=== PATIENT | male | born 1990 | race African-American/Black ===

== ENCOUNTER 2019-08-13 17:06 | Emergency (ER) | payer OTHER, SELFPAY ==
--- NOTE | ~2019-08-13 | XR_ITS ---
EXAMINATION: XR abdomen obstructive series EXAM DATE: 08/13/2019 18:31 INDICATION: Vomiting. Generalized abdominal pain. TECHNIQUE: Frontal upright projection of the upper abdomen, frontal projection of the lower abdomen f or interpretation. There is no prior study for comparison. FINDINGS: Small amount of colonic stool and gas. No small bowel dilation, nonobstructive bowel gas pattern. There are no suspicious calcifications identified. There is no organomegaly suspected. The bones are unremarkable. There is no free intraperitoneal air. The lung bases are clear. IMPRESSION: Unremarkable abdomen x-ray exam. Reviewed, dictated and finalized at location A.
[2019-08-13 17:07] VITALS: BP 142/85; PULSE 83; RESP 16; TEMP 36.3; O2SAT 100
[2019-08-13 17:52] LABS: Basophils Absolute Auto 0.1 K/mm3 (0.0-0.1); Basophils Percent Auto 0.5 % (0.2-1.2); Eosinophils Absolute Auto 0.1 K/mm3 (0-0.3); Eosinophils Percent Auto 0.9 % (0-4.4); Hematocrit 40.2 % (42.0-52.0); Hemoglobin 13.5 g/dL (14.0-18.0); Immature Granulocyte Absolute 0.03 K/mm3 (0.00-0.031); Immature Granulocyte Percent A 0.3 % (0-0.5); Lymphocytes Absolute Auto 2.42 K/mm3 (0.9-3.2); Lymphocytes Percent Auto 25.4 % (18.3-44.2); Mean Corpuscular HGB Conc 33.6 g/dl (32-36); Mean Corpuscular Volume 83.4 fl (80-100); Mean Platelet Volume 10.9 fl (7.4-10.4); Monocytes Absolute Auto 0.8 K/mm3 (0.1-0.6); Monocytes Percent Auto 8.6 % (2.6-8.5); Neutrophils Absolute Auto 6.1 K/mm3 (1.3-6.7); Neutrophils Percent Auto 64.3 % (45.5-73.1); Platelet Count Result 231 k/mm3 (150-375); Red Blood Count 4.82 M/mm3 (4.6-6.20); Red Cell Distribution Width 15.6 % (11.5-14.5); White Blood Count 9.5 K/mm3 (4.5-10.0)
[2019-08-13 17:57] LABS: Add Urine Microscopic? YES; Appearance Urine Clear (Clear); Bacteria Urine Trace /hpf; Bilirubin Urine Negative (Negative); Blood Urine Negative (Negative); Color Urine Yellow (Yellow); Glucose Urine UA Negative (Negative); Ketones Urine Negative (Negative); Leukocyte Esterase Ur Negative LEU/UL (Negative); Mucus Urine Rare /lpf; Nitrate Urine Negative (Negative); Protein Urine Negative (Negative); RBC Urine 0-2 /hpf (0-2); Specific Grav Ur 1.021 (1.001-1.035)
[2019-08-13 18:07] LABS: Alanine Aminotransferase 23 U/L (4-50); Albumin Level 3.8 g/dL (3.5-5.1); Alkaline Phosphatase 94 U/L (38-126); Aspartate Amino Transferase 23 U/L (17-59); Bilirubin,Total 0.5 mg/dL (0.2-1.3); Blood Urea Nitrogen 11 mg/dL (9-20); Calcium 8.8 mg/dL (8.4-10.2); Carbon Dioxide 24 mmol/L (22-30); Chloride 107 mmol/L (98-107); Estimated CRCL calculation 143 ml/min; Estimated Glomerular Filt Rate > 60; Glucose 99 mg/dL (75-110); Lipase 37 U/L (23-300); Potassium 3.8 mmol/L (3.4-5.0); Sodium 138 mmol/L (137-145)
[2019-08-13] MEDS: ONDANSETRON INJ 4 MG/2 ML VIAL IV PUSH (18:27)
[2019-08-13] MEDS: SODIUM CHLORIDE 0.9% IV 500 ML 999 ML IV CONT (18:28)
--- NOTE | 2019-08-13 18:51 | ED.NAVMDI ---
HPI - Nausea/Vomiting/Diarrhea General Chief complaint: Nausea/Vomiting/Diarrhea Stated complaint: N/V XTD Time Seen by Provider: 08/13/19 17:52 Source: patient Mode of arrival: ambulatory Limitations: no limitations History of Present Illness HPI Narrative: This is a 29 year old male that presents to the ER for nausea and vomiting since this morning. Reports several episodes of vomiting this morning. Reports some mild upper abdominal pain with this. Reports since he has been able to eat and drink okay with no further episodes of emesis. Denies fever, diarrhea, dysuria or hematuria. Related Data Home Medications Medication Instructions Recorded Confirmed No Home Medications 08/13/19 08/13/19 Allergies Allergy/AdvReac Type Severity Reaction Status Date / Time No Known Allergies Allergy Verified 08/13/19 17:36 Review of Systems Review of Systems: Narrative: CONSTITUTIONAL: Denies fever GASTROINTESTINAL: Reports abdominal pain, nausea, vomiting. Denies diarrhea. GENITOURINARY: Denies dysuria or hematuria. All systems reviewed & are unremarkable except as noted in HPI and below PMFSH Past Medical History Medical History (Updated 08/13/19 @ 19:02 by Alyson Castillo PA-C) No active medical problems Social History Social History (Updated 08/13/19 @ 18:58 by Alyson Castillo PA-C) Smoking status: Never smoker Exam Narrative: Exam Narrative: GENERAL: Well-appearing, well-nourished, and in no acute distress. HEAD: Normocephalic, atraumatic. EYES: EOMI. CHEST: Clear to auscultation. No respiratory distress. No wheezes rales or rhonchi HEART: Regular rate and rhythm. No murmur heard. Normal peripheral pulses. ABDOMEN: Soft, nontender, nondistended, normal active bowel sounds. EXTREMITIES: Normal range of motion. No edema. SKIN: Warm, dry, no rash. NEURO: No focal deficits. Alert and oriented x3. PSYCH: Normal mood and affect Course Vital Signs Vital signs: Vital Signs Temperature 97.4 F L 08/13/19 17:07 Pulse Rate 83 08/13/19 17:07 Respiratory Rate 16 08/13/19 17:07 Blood Pressure 142/85 H 08/13/19 17:07 Pulse Oximetry 100 08/13/19 17:07 Temperature 97.4 F L 08/13/19 17:07 Pulse Rate 83 08/13/19 17:07 Respiratory Rate 16 08/13/19 17:07 Blood Pressure 142/85 H 08/13/19 17:07 Pulse Oximetry 100 08/13/19 17:07 MDM - Nausea/Vomiting/Diarrhea MDM Narrative Medical decision making narrative: Patient presents to the emergency department for nausea and vomiting this morning. Patient is afebrile and nontoxic-appearing. Abdominal exam is benign. CBC is without leukocytosis. Does show mild normocytic anemia with hemoglobin of 13.5. Metabolic panel and lipase are normal. UA with white blood cells, this will go for culture. Patient is asymptomatic. KUB is without acute changes. Patient with no episodes of emesis in the ED. Tolerating p.o. intake. He is to follow-up with primary care doctor. He was given warnings to return to the ER Lab Data Attestation: I reviewed the patient's lab results. Result diagrams: 08/13/19 17:35 08/13/19 17:35 Labs: Lab Results 08/13/19 08/13/19 08/13/19 Range/Units 17:35 17:35 17:37 WBC 9.5 (4.5-10.0) K/mm3 RBC 4.82 (4.6-6.20) M/mm3 Hgb 13.5 L (14.0-18.0) g/dL Hct 40.2 L (42.0-52.0) % MCV 83.4 (80-100) fl MCH 28.0 (26-34) pg MCHC 33.6 (32-36) g/dl RDW 15.6 H (11.5-14.5) % Plt Count 231 (150-375) k/mm3 MPV 10.9 H (7.4-10.4) fl Immature Gran % (Auto) 0.3 (0-0.5) % Neut % (Auto) 64.3 (45.5-73.1) % Lymph % (Auto) 25.4 (18.3-44.2) % [place] % (Auto) 8.6 H (2.6-8.5) % Eos % (Auto) 0.9 (0-4.4) % Baso % (Auto) 0.5 (0.2-1.2) % Lymph # (Auto) 2.42 (0.9-3.2) K/mm3 [place] # (Auto) 0.8 H (0.1-0.6) K/mm3 Eos # (Auto) 0.1 (0-0.3) K/mm3 Baso # (Auto) 0.1 (0.0-0.1) K/mm3 Abs Immat Gran (auto) 0.03 (0.00-0.031) K/mm3 Abs
== END 2019-08-13 19:45 | disposition home or self-care (01) ==
PROVIDERS: Emergency Provider Emergency Medicine; PCP Emergency Medicine
DX: R11.2 Nausea with vomiting, unspecified (principal)
CPT/HCPCS: 36415; 74019; 80053; 81001; 83690; 85025; 87086; 96365; 96375; 99284; J0131; J2405; J7040

== ENCOUNTER → 2019-10-19 15:55 | Outpatient (CLI) | payer OTHER, SELFPAY ==
--- NOTE | ~2019-10-19 | XR_ITS ---
XR cervical spine 4-5V DATE: 10/19/2019 16:30 INDICATION: Left hand numbness TECHNIQUE: AP, lateral, swimmer and open mouth views COMPARISON: None FINDINGS: There is mild reversal of cervical curvature. C1 and C2 are normally aligned and the odont oid process is intact. No fracture, dislocation or locked facet or prevertebral soft tissue swellin g. The cervical interspaces are well preserved. IMPRESSION: Mild reversal of curvature Reviewed, dictated and finalized at location A. IMPRESSION: Mild reversal of curvature
== END ==
PROVIDERS: PCP Emergency Medicine; Visit Provider Emergency Medicine
DX: R20.0 Anesthesia of skin (principal)
CPT/HCPCS: 72050

== ENCOUNTER 2020-10-05 16:23 | Emergency (ER) | payer OTHER, SELFPAY ==
--- NOTE | ~2020-10-05 | XR_ITS ---
EXAMINATION: XR ankle LT min 3V EXAM DATE: 10/05/2020 16:50 INDICATION: Heel pain, states spur shaved of January 2020.. TECHNIQUE: Left foot dorsoplantar, lateral and oblique projections obtained and reviewed. Comparison is made to prior examination from 12/30/2018. FINDINGS: Left calcaneal surgical changes, previously seen posterior calcaneal spurring/Achilles enth esopathy no longer identified. There is a metallic anchor in the calcaneus probably from Achilles ten don reattachment. No other radiopaque foreign bodies. No erosive changes or acute fracture. The ankle mortise appears intact. Talar dome without osteochondral defect. IMPRESSION: Calcaneal surgical changes. Reviewed, dictated and finalized at location A. IMPRESSION: Calcaneal surgical changes.
[2020-10-05 16:31] VITALS: BP 130/66; PULSE 64; RESP 18; TEMP 36.8; O2SAT 99
[2020-10-05] MEDS: ACETAMINOPHEN 500 MG TABLET 1000 MG PO (16:59)
--- NOTE | 2020-10-05 17:05 | ED.LOWEXIN ---
HPI - Extremity Injury (Lower) General Chief Complaint: Extremity Injury, Lower Stated Complaint: L ankle injury Time Seen by Provider: 10/05/20 16:31 History of Present Illness HPI Narrative: Patient is a 30-year-old male who presents ER with left ankle pain is actually posterior to the left ankle anterior to the Achilles. He reports mild swelling in this area. Pain increased over the last couple days. Has history of surgery to the area. No recent injury. No fevers or chills or sweats. No redness area. No history of gout. Patient is concerned there could be something wrong with the bone despite not having injury. Related Data Allergies Allergy/AdvReac Type Severity Reaction Status Date / Time No Known Allergies Allergy Verified 10/05/20 16:39 Review of Systems Constitutional: Constitutional: Denies chills and Denies fever(s) Musculoskeletal: Musculoskeletal: Reports arthralgias and Reports joint swelling Neurologic: Denies focal weakness and Denies numbness PMFSH Past Medical History Medical History (Updated 10/05/20 @ 17:09 by Ministerio Stafford MD) No active medical problems Surgical History Surgical History (Updated 10/05/20 @ 17:07 by Ministerio Stafford MD) H/O foot surgery Social History Social History (Updated 08/13/19 @ 18:58 by Alyson Castillo PA-C) Smoking status: Never smoker Exam Narrative: Exam Narrative: GENERAL: Well-appearing, well-nourished, and in no acute distress. HEAD: Normocephalic, atraumatic. CHEST: Clear to auscultation. No respiratory distress. HEART: Regular rate and rhythm. Normal peripheral pulses. EXTREMITIES: Normal range of motion. No edema. No tenderness to left ankle. SKIN: Warm, dry, no rash. NEURO: Alert and oriented x3. PSYCH: Normal mood and affect. Course Course Emergency Course: Unremarkable imaging. Recommend rest/ice/elevation/Jamar wrap. Could have arthritic component is causing discomfort. No evidence of gout. Vital Signs Vital signs: Vital Signs Temperature 98.3 F 10/05/20 16:31 Pulse Rate 64 10/05/20 16:31 Respiratory Rate 18 10/05/20 16:31 Blood Pressure 130/66 10/05/20 16:31 Pulse Oximetry 99 10/05/20 16:31 Temperature 98.3 F 10/05/20 16:31 Pulse Rate 64 10/05/20 16:31 Respiratory Rate 18 10/05/20 16:31 Blood Pressure 130/66 10/05/20 16:31 Pulse Oximetry 99 10/05/20 16:31 MDM - Extremity Injury (Lower) Imaging Data Radiologist's impression: ITS Impressions Ankle X-Ray 10/05/20 16:55 IMPRESSION: Calcaneal surgical changes. Discharge Plan Discharge Clinical Impression: Acute ankle pain Patient Disposition: Home, Self-Care Condition: Stable Instructions: Arthralgia (ED), R.I.C.E. Treatment (ED) Additional Instructions: Follow-up with your primary care doctor or with your geosciences professor. Continue to wrap your foot, elevate it, and apply ice as needed. Take naproxen twice a day to help with inflammation. Prescriptions: New naproxen 500 mg tablet 500 mg PO BID Qty: 14 RF: 0 Follow-up/Referrals: Demetrius Ortiz MD [Primary Care Provider] - 1 Week
--- NOTE | 2020-10-05 17:26 | PC.NURSE ---
Tried to apply solo wrap. Pt declined at this time. Requested to take the solo wrap home and apply when he got there. Pt provided education on how to apply.
== END 2020-10-05 17:28 | disposition home or self-care (01) ==
PROVIDERS: Emergency Provider Emergency Medicine; PCP Emergency Medicine
DX: M25.572 Pain in left ankle and joints of left foot (principal)
CPT/HCPCS: 73610; 99283; A9270

== ENCOUNTER 2020-11-11 21:52 | Emergency (ER) | payer OTHER, SELFPAY ==
[2020-11-11] VITALS (16 sets, daily range): BP systolic 121–146; BP diastolic 81–95; PULSE 83–98; RESP 0–24; TEMP 36.9; O2SAT 92–100
--- NOTE | ~2020-11-11 | XR_ITS ---
EXAMINATION: XR chest 1V portable DATE: 11/11/2020 22:30 INDICATION: Shortness of breath. TECHNIQUE: A single frontal view of the chest was obtained. COMPARISON: Chest 2 views 12/25/2015 FINDINGS: Sensitivity is decreased by obesity. The chest demonstrates clear lungs without pneumonia, pleural effusion, or pneumothorax. The heart size is normal. IMPRESSION: 1. No acute cardiopulmonary disease. Reviewed, dictated and finalized at location A.
--- NOTE | 2020-11-11 22:13 | PC.NURSE ---
pt reports exposure to covid 11/04. reports his shortness of breath and headache started 3 days ago. no covid vaccine history. denies other complaints. intermittent congested cough noted without productive sputum. a/o x 4. resps even, nonlabored. able to speak in full sentences.
--- NOTE | 2020-11-11 22:21 | ECG_ITS ---
Measurements Intervals [place] Rate: 89 P: 19 OK: 186 QRS: -17 QRSD: 89 T: 29 QT: 338 QTc: 412 Interpretive Statements SINUS RHYTHM VOLTAGE CRITERIA FOR LVH POOR R WAVE PROGRESSION, ANTERIOR LEADS MINIMAL Q WAVES- HIGH LATERAL LEADS BORDERLINE ECG Electronically Signed On 11-12-2020 7:54:36 CDT by Jaime Peres D.O.
[2020-11-11 23:00] LABS: Basophils Percent Auto 0.3 % (0.2-1.2); Hematocrit 46.5 % (42.0-52.0); Hemoglobin 15.4 g/dL (14.0-18.0); Immature Granulocyte Absolute 0.02 K/mm3 (0.00-0.031); Immature Granulocyte Percent A 0.3 % (0-0.5); Lymphocytes Absolute Auto 2.08 K/mm3 (0.9-3.2); Lymphocytes Percent Auto 34.8 % (18.3-44.2); Mean Corpuscular HGB Conc 33.1 g/dl (32-36); Mean Corpuscular Hemoglobin 27.5 pg (26-34); Mean Corpuscular Volume 82.9 fl (80-100); Mean Platelet Volume 11.4 fl (7.4-10.4); Monocytes Absolute Auto 0.7 K/mm3 (0.1-0.6); Neutrophils Absolute Auto 3.2 K/mm3 (1.3-6.7); Neutrophils Percent Auto 53.6 % (45.5-73.1); Platelet Count Result 180 k/mm3 (150-375); Red Blood Count 5.61 M/mm3 (4.6-6.20); Red Cell Distribution Width 14.5 % (11.5-14.5)
--- NOTE | 2020-11-11 23:08 | ED.URI ---
HPI - URI/Sore Throat General Chief Complaint: Upper Respiratory Infection Stated Complaint: sob Time Seen by Provider: 11/11/20 22:00 Source: patient and RN notes reviewed Mode of arrival: ambulatory Limitations: no limitations History of Present Illness HPI Narrative: This is a 30 year old male who presents for evaluation shortness of breath and covid exposure. Patient states he was exposed to covid on Saturday. He developed cough, runny nse, headache on Saturday. He went to [facility] on Saturday for covid test but he did not follow up on the results. He states he continues to not feel well. He developed shortness of breath tonight so he came to ER. He noticed when he was walking outside. He states he feels better that he is here. He denies chest pain, fever, leg swelling or calf pain. He also denies vomiting. He denies cardiac history or lung history. He also history of DT or PE. Related Data Allergies Allergy/AdvReac Type Severity Reaction Status Date / Time No Known Allergies Allergy Verified 11/11/20 22:05 Review of Systems Review of Systems: All systems reviewed & are unremarkable except as noted in HPI and below PMFSH Past Medical History Medical History No active medical problems Surgical History Surgical History H/O foot surgery Social History Social History Smoking status: Never smoker Exam Const: General: no acute distress and alert Nutritional Appearance: obese Orientation/consciousness: patient oriented x3 Eyes: EOM: EOMs intact bilaterally Chest: Chest palpation & inspection: normal inspection of the chest Resp: Effort & Inspection: normal respiratory effort and no retractions Auscultation: clear to auscultation bilaterally Cardio: Rate: regular rate Rhythm: regular rhythm Heart sounds: no murmurs GI: GI Palp: Yes Soft to palpation, No Tenderness to palpation present (GI) and No Guarding due to palpation present (GI) Auscultation: normal bowel sounds Skin: General skin exam: normal color Rashes: no rashes Neuro: General: patient oriented x3, moves all extremities and CN's II-XI intact bilaterally Psych: Mental Status: mental status grossly normal Affect: normal affect Course Reevaluation(s) Reevaluation #1: I discussed with patient labs and xray are unremarkable. He will be instructed on using albuterol I have discussed discharge plan. Date: 11/11/20 Time: 23:43 Vital Signs Vital signs: Vital Signs Temperature 98.4 F 11/11/20 21:59 Pulse Rate 92 11/11/20 21:59 Respiratory Rate 16 11/11/20 21:59 Blood Pressure 132/95 H 11/11/20 21:59 Pulse Oximetry 97 11/11/20 21:59 Temperature 98.4 F 11/11/20 21:59 Pulse Rate 88 11/11/20 23:17 Respiratory Rate 24 H 11/11/20 23:17 Blood Pressure 146/93 H 11/11/20 23:01 Pulse Oximetry 100 11/11/20 23:17 MDM - URI/Sore Throat Lab Data Attestation: I reviewed the patient's lab results. Result diagrams: 11/11/20 22:37 11/11/20 22:37 Labs: Lab Results 11/11/20 11/11/20 11/11/20 Range/Units 22:37 22:37 22:37 WBC 6.0 (4.5-10.0) K/mm3 RBC 5.61 (4.6-6.20) M/mm3 Hgb 15.4 (14.0-18.0) g/dL Hct 46.5 (42.0-52.0) % MCV 82.9 (80-100) fl MCH 27.5 (26-34) pg MCHC 33.1 (32-36) g/dl RDW 14.5 (11.5-14.5) % Plt Count 180 (150-375) k/mm3 MPV 11.4 H (7.4-10.4) fl Immature Gran % (Auto) 0.3 (0-0.5) % Neut % (Auto) 53.6 (45.5-73.1) % Lymph % (Auto) 34.8 (18.3-44.2) % [place] % (Auto) 11.0 H (2.6-8.5) % Eos % (Auto) 0.0 (0-4.4) % Baso % (Auto) 0.3 (0.2-1.2) % Lymph # (Auto) 2.08 (0.9-3.2) K/mm3 [place] # (Auto) 0.7 H (0.1-0.6) K/mm3 Eos # (Auto) 0.0 (0-0.3) K/mm3 Baso # (Auto) 0.0 (0.0-0.1) K/mm3 Abs Immat Gran
[2020-11-11 23:11] LABS: INR 0.9; Prothrombin Time 12.1 Seconds (11.1-14.7)
[2020-11-11 23:14] LABS: D Dimer 0.31 ug/mL (<0.48)
[2020-11-11 23:16] LABS: Alanine Aminotransferase 27 U/L (4-50); Albumin Level 4.2 g/dL (3.5-5.1); Alkaline Phosphatase 115 U/L (38-126); Anion Gap 8 mmol/L (8-16); Aspartate Amino Transferase 24 U/L (17-59); Bilirubin,Total 0.5 mg/dL (0.2-1.3); Blood Urea Nitrogen 7 mg/dL (9-20); CRP 1.7 mg/dL (<1.0); Carbon Dioxide 23 mmol/L (22-30); Chloride 107 mmol/L (98-107); Estimated CRCL calculation 149 ml/min; Estimated Glomerular Filt Rate > 60; Glucose 100 mg/dL (65-110); Sodium 138 mmol/L (137-145)
[2020-11-12 00:06] VITALS: PULSE 83
[2020-11-12 00:20] VITALS: PULSE 73; RESP 23; O2SAT 99
[2020-11-12 00:30] VITALS: PULSE 81; RESP 24; O2SAT 99
[2020-11-12 00:31] VITALS: BP 122/74; PULSE 85; O2SAT 95
[2020-11-12] MEDS: ALBUTEROL SULFATE (*SP) AEROSOL 1 PUFF 2 PUFF INHALATION (00:31)
[2020-11-12 21:29] LABS: SARS-CoV-2 RNA PCR Positive
== END 2020-11-12 00:50 | disposition home or self-care (01) ==
PROVIDERS: Emergency Provider General Practice
DX: U07.1 COVID-19 (principal); J06.9 Acute upper respiratory infection, unspecified; R94.31 Abnormal electrocardiogram [ECG] [EKG]
CPT/HCPCS: 36415; 71045; 80053; 85025; 85380; 85610; 85730; 86140; 87804; 93005; 99283; A9270; C9803; U0003; U0005

== ENCOUNTER 2021-05-17 02:00 | Emergency (ER) | payer OTHER, SELFPAY ==
[2021-05-17 02:19] VITALS: BP 136/62; PULSE 75; RESP 18; TEMP 36.7; O2SAT 100
--- NOTE | 2021-05-17 02:48 | ED.SKABFB ---
HPI - Skin/Abscess/Foreign Bdy General Chief complaint: Skin/Abscess/Foreign Body Stated complaint: lump to left eyebrow x2 days Time Seen by Provider: 05/17/21 02:31 Source: patient History of Present Illness HPI narrative: Patient presents with a lump above his left eyebrow. Reports been there for the past 2 days and has been getting worse he feels a lot of pressure in that area so he wanted to come to the ER for evaluation. Denies any trauma to the area denies any nausea vomiting denies any fevers. Denies any changes in vision denies any pain with extraocular movement Related Data Allergies Allergy/AdvReac Type Severity Reaction Status Date / Time No Known Allergies Allergy Verified 05/17/21 02:33 Review of Systems Review of Systems: CONSTITUTIONAL: Denies fever, chills, or sweats. EYES: Denies visual changes, redness, or discharge. ENT: Denies rhinorrhea, congestion, sore throat, or otalgia. CARDIOVASCULAR: Denies chest pain, palpitations, or edema. RESPIRATORY: Denies cough or dyspnea. GASTROINTESTINAL: Denies abdominal pain, nausea, vomiting, or diarrhea. GENITOURINARY: Denies dysuria or hematuria. SKIN: Denies rash or itching. MUSCULOSKELETAL: Denies back pain, joint pain, or myalgia. NEUROLOGIC: Denies headache, numbness, dizziness, or weakness. PSYCHIATRIC: Denies anxiety or depression. All systems reviewed & are unremarkable except as noted in HPI and below PMFSH Past Medical History Medical History No active medical problems Surgical History Surgical History H/O foot surgery Social History Social History Smoking status: Never smoker Exam Narrative: GENERAL: Well-appearing, well-nourished, and in no acute distress. HEAD: For mobile nodule above the left medial eyebrow with tenderness to palpation surrounded by edema, no open or draining wounds EYES: PERRLA and EOMI. ENT: Nares clear, no rhinorrhea or epistaxis. Mucous membranes moist. NECK: Supple. No masses. No JVD EXTREMITIES: Normal range of motion. No edema. SKIN: Warm, dry, no rash. NEURO: No focal deficits. Alert and oriented x3. PSYCH: Normal mood and affect. Course Vital Signs Vital signs: Vital Signs Temperature 36.7 C 05/17/21 02:19 Pulse Rate 75 05/17/21 02:19 Respiratory Rate 18 05/17/21 02:19 Blood Pressure 136/62 05/17/21 02:19 Pulse Oximetry 100 05/17/21 02:19 Temperature 36.7 C 05/17/21 02:19 Pulse Rate 75 05/17/21 02:19 Respiratory Rate 18 05/17/21 02:19 Blood Pressure 136/62 05/17/21 02:19 Pulse Oximetry 100 05/17/21 02:19 Procedures Abscess I/D scalp: Date of Incision: 05/17/21 Time of Incision: 02:45 Side (if applicable): left Local Anesthetic: lidocaine 1% and with epi Technique: needle aspiration and incised with #11 blade Amount of fluid expressed (mL): 1 Irrigation: No Packing used?: none I&D Results: Pus and Blood MDM - Skin/Abscess/Foreign Bdy MDM Narrative Medical decision making narrative: H&P as above, vss, pt looks clinically well, exam tender nodule surrounded by edema and warmth, bedside ultrasound performed showing a focal fluid collection, additional labs/img considered, symptomatic relief available as needed, needle aspiration attempted however only blood was expressed, recommended I&D patient tolerated the procedure well, dns osteomyelitis, retrobulbar process, severe sepsis. plan to tx/monitor as op w/ pcm f/u findings/plan discussed with pt, pt agree/comfortable with plan, return precautions given Discharge Plan Discharge Clinical Impression: Cellulitis Qualifiers: Site of cellulitis: face Qualified Code(s): L03.211 - Cellulitis of face Abscess of skin or subcutaneous tissue Qualifiers: Site of cutaneous abscess: face Qualified Code(s):
[2021-05-17] MEDS: CEPHALEXIN 500 MG CAPSULE PO (02:54)
== END 2021-05-17 03:58 | disposition home or self-care (01) ==
LOC: ANHED 02:54
PROVIDERS: Emergency Provider Emergency Medicine; PCP Emergency Medicine
DX: L03.211 Cellulitis of face (principal); L02.01 Cutaneous abscess of face
CPT/HCPCS: 10060; 99283; A9270

== ENCOUNTER 2021-08-16 15:50 | Emergency (ER) | payer OTHER, SELFPAY ==
--- NOTE | 2021-08-16 15:51 | ED.ABDPAIN ---
HPI - Abdominal Pain General Chief Complaint: Nausea/Vomiting/Diarrhea Stated Complaint: abd pain Time Seen by Provider: 08/16/21 15:51 Source: patient Mode of arrival: ambulatory Limitations: no limitations History of Present Illness HPI narrative: Mr. Solis is a 31-year-old male patient presenting to the clinic today with complaints nausea, vomiting, and diarrhea that started last night. He reports he thinks it may have been something he ate. His daughter is also having some diarrhea. States that he had 1 episode of vomiting last night and then 1 episode this morning. Did have 1 episode of diarrhea this morning but nothing since MD elicited complaint: abdominal pain Related Data Allergies Allergy/AdvReac Type Severity Reaction Status Date / Time No Known Allergies Allergy Verified 05/17/21 02:33 Review of Systems Review of Systems: Pertinent positives per HPI. Patient denies any fever, chills, rash, headache, visual changes, dizziness, cough, runny nose, sore throat, shortness of breath, chest pain, palpitations, nausea, vomiting, diarrhea, constipation, or any urinary issues. PMFSH Past Medical History Medical History No active medical problems Surgical History Surgical History H/O foot surgery Social History Social History Smoking status: Never smoker Comments At the time of my signature, I reviewed and agree with the nursing past medical, surgical, social, and family history. There is no relevant family history pertinent to the patient complaint. Exam Narrative: General: Well-developed, morbidly obese, in no apparent distress. Head: Normocephalic, atraumatic. Cardio: Regular rate and rhythm, s1 and s2 normal, no murmur appreciated. Resp: Clear to auscultation bilaterally, no rhonchi, rales, wheezing or rubs. Abdomen: Soft, pliable, bowel sounds present in all quadrants, non-tender to palpation, no organomegly, no CVAT tenderness. Course Course Emergency Course: Portions of this record may have been created with voice recognition software. Level of Care: Express Care Visit Vital Signs Vital signs: Vital signs reviewed MDM - Abdominal Pain MDM Narrative Medical decision making narrative: At the time of visit patient is resting comfortably on the exam table. Reports 2 episodes of vomiting and one episode of diarrhea since last night. He denies any fever or chills. He denies any abdominal discomfort. I suspect the patient may have gastroenteritis. I will give a prescription for some Zofran and discussed other supportive measures and he voiced understanding of discharge instructions and agrees with treatment plan. Discharge Plan Discharge Clinical Impression: Gastroenteritis Patient Disposition: Home, Self-Care Condition: Stable Instructions: Antibiotic Form, Gastroenteritis (ED), Acute Nausea and Vomiting (ED) Additional Instructions: Take prescription medications only as prescribed-Zofran for nausea Take Imodium as needed for diarrhea as long as there is no blood in your stool Increase fluids and stay well hydrated Tylenol/motrin for pain/fever BRAT diet for diarrhea Clear liquids x 24 hours then advance as tolerated for nausea/vomiting May return to the clinic if symptoms worsen Go to the ED if you develop dehydration, weakness, lethargy, shortness of breath, or chest pain. Follow up with your PCP in 3-5 days if symptoms persist. Prescriptions: New ondansetron 4 mg tablet,disintegrating 4 mg PO Q6H PRN (Reason: nausea and vomiting) 3 Days Qty: 12 RF: 0 Follow-up/Referrals: UNKNOWN,DOCTOR [Primary Care Provider] - Stand Alone Forms: Work/School Release IP Time of Disposition: 16:02 Quality NIHSS Nursing Documentation ED NIHSS nursing documentation: reviewed/ag
[2021-08-16 15:59] VITALS: BP 136/83; PULSE 79; RESP 16; TEMP 36.6; O2SAT 99
[2021-08-16 16:02] VITALS: BP 136/83; PULSE 79; RESP 16; TEMP 36.6; O2SAT 99
== END 2021-08-16 16:05 | disposition home or self-care (01) ==
PROVIDERS: Emergency Provider Nurse Practitioner Family
DX: K52.9 Noninfective gastroenteritis and colitis, unspecified (principal)
CPT/HCPCS: 99213; G0463

== ENCOUNTER 2022-02-18 04:28 | Emergency (ER) | payer OTHER, SELFPAY ==
[2022-02-18 04:35] VITALS: BP 129/61; PULSE 53; RESP 18; TEMP 37.3; O2SAT 100
--- NOTE | 2022-02-18 05:19 | ED.EXTPRO ---
HPI - Extremity Problem General Chief complaint: Extremity Problem,Nontraumatic Stated complaint: numbness in right arm, bilateral hand Time Seen by Provider: 02/18/22 04:35 History of Present Illness HPI Narrative: 31-year-old male presented the emergency department for evaluation of bilateral numbness to his hands. Patient states this has been occurring over the last few mornings when he wakes up and tonight patient states he went to bed early and when he woke up the hand numbness was worse on the right than the left. Patient does report he does work and does repetitive motions of the wrist. Patient denies any prior history of CVA or ID. Patient denies any other falls or injuries. Patient denies any weakness of the hands and patient denies any numbness weakness of the lower extremities. Related Data Allergies Allergy/AdvReac Type Severity Reaction Status Date / Time No Known Allergies Allergy Verified 02/18/22 04:30 Review of Systems Review of Systems: CONSTITUTIONAL: Denies fever, chills, or sweats. EYES: Denies visual changes, redness, or discharge. ENT: Denies rhinorrhea, congestion, sore throat, or otalgia. CARDIOVASCULAR: Denies chest pain, palpitations, or edema. RESPIRATORY: Denies cough or dyspnea. GASTROINTESTINAL: Denies abdominal pain, nausea, vomiting, or diarrhea. GENITOURINARY: Denies dysuria or hematuria. SKIN: Denies rash or itching. MUSCULOSKELETAL: Denies back pain, joint pain, or myalgia. NEUROLOGIC: See HPI PMFSH Past Medical History Medical History No active medical problems Surgical History Surgical History H/O foot surgery Social History Social History Smoking status: Never smoker Exam Narrative: APPEARANCE: Well appearing, no pain, no distress, well-nourished. HEAD: normocephalic, atraumatic. EYES: PERRLA/EOMI, conjunctivae clear. NOSE: Normal no drainage NECK: Supple. No adenopathy, no masses. RESPIRATORY: Airway patent, respirations nonlabored. Clear to auscultation bilaterally, no rales, rhonchi, wheezing. CARDIOVASCULAR: Regular rate and rhythm without murmurs rubs or gallops. ABDOMINAL: Soft, nontender, nondistended, normal bowel sounds MUSCULOSKELETAL: Moves all extremities. Strength/ROM intact, No edema, No calf tenderness. NEURO: Alert. Cranial nerves II through XII intact. Grossly intact. Intact to pinprick and light touch on hands bilaterally. Subjective decrease sensation of the right hand. Otherwise normal neuro exam SKIN: Warm, dry. Normal Color Course Course Emergency Course: Patient appears to have an injury of repetitive use exacerbated by his sleep position. Patient was provided instructions to wear cock up volar braces at nighttime. Patient was also encouraged of close follow-up with his primary care physician. Vital Signs Vital signs: Vital Signs Temperature 99.1 F 02/18/22 04:35 Pulse Rate 53 L 02/18/22 04:35 Respiratory Rate 18 02/18/22 04:35 Blood Pressure 129/61 02/18/22 04:35 Pulse Oximetry 100 02/18/22 04:35 Oxygen Delivery Room Air 02/18/22 04:35 Temperature 99.1 F 02/18/22 04:35 Pulse Rate 53 L 02/18/22 04:35 Respiratory Rate 18 02/18/22 04:35 Blood Pressure 129/61 02/18/22 04:35 Pulse Oximetry 100 02/18/22 04:35 Oxygen Delivery Room Air 02/18/22 04:35 Discharge Plan Discharge Clinical Impression: Overuse injury, Carpal tunnel syndrome Patient Disposition: Home, Self-Care Condition: Stable Instructions: Antibiotic Form, Carpal Tunnel Syndrome (DC), Paresthesia (ED) Additional Instructions: I recommend using bilateral volar wrist cock-up splints at nighttime to help keep your wrist straight. Avoid overuse injuries at work. Ibuprofen scheduled next few days for the anti-inflammatory components. Have close fo
== END 2022-02-18 05:29 | disposition home or self-care (01) ==
PROVIDERS: Emergency Provider Emergency Medicine; PCP Emergency Medicine
DX: G56.03 Carpal tunnel syndrome, bilateral upper limbs (principal); M70.842 Other soft tissue disorders related to use, overuse and pressure, left hand; M70.841 Other soft tissue disorders related to use, overuse and pressure, right hand
CPT/HCPCS: 99283

== ENCOUNTER 2022-02-25 16:10 | Emergency (ER) | payer OTHER, SELFPAY ==
--- NOTE | ~2022-02-25 | XR_ITS ---
EXAM: XR_CERV2-3V_CR DATE: 02/25/2022 17:21 HISTORY: bilateral UE radicular pain . COMPARISON: 10/19/2019. FINDINGS: Craniocervical association and atlantoaxial joint are aligned. No prevertebral soft tissue swelling. Vertebral bodies are aligned. Cervical spine straightening as can occur with positioning o r muscle spasm. Vertebral body heights and disc spaces are maintained. Normal facets and posterior el ements. IMPRESSION: No acute fracture or traumatic malalignment detected in the cervical spine. Reviewed, dictated and finalized at location K. P POLISHER IMPRESSION: No acute fracture or traumatic malalignment detected in the cervica l spine.
[2022-02-25 16:13] VITALS: BP 141/82; PULSE 77; RESP 18; TEMP 37.4; O2SAT 100
--- NOTE | 2022-02-25 17:25 | ED.EXTPRO ---
HPI - Extremity Problem General Chief complaint: Extremity Problem,Nontraumatic Stated complaint: pins and needles to bilateral hands x 2 weeks Time Seen by Provider: 02/25/22 16:51 History of Present Illness HPI Narrative: 31-year-old male presents to the emergency room for evaluation of bilateral radicular pain to his hands. Patient states the pain has been occurring over the last 10 days, is worse in the mornings. Patient was seen here in the emergency room 1 week ago for similar symptoms. States the numbness and tingling was primarily located in his third fourth and fifth digits and radiates up the medial side of his forearm. Patient denies any injury or trauma. Related Data Allergies Allergy/AdvReac Type Severity Reaction Status Date / Time No Known Allergies Allergy Verified 02/25/22 16:11 Review of Systems Review of Systems: CONSTITUTIONAL: Denies fever, chills, or sweats. EYES: Denies visual changes, redness, or discharge. ENT: Denies rhinorrhea, congestion, sore throat, or otalgia. CARDIOVASCULAR: Denies chest pain, palpitations, or edema. RESPIRATORY: Denies cough or dyspnea. GASTROINTESTINAL: Denies abdominal pain, nausea, vomiting, or diarrhea. GENITOURINARY: Denies dysuria or hematuria. SKIN: Denies rash or itching. MUSCULOSKELETAL: Reports paresthesias to bilateral hands NEUROLOGIC: Denies headache, numbness, dizziness, or weakness. PSYCHIATRIC: Denies anxiety or depression. PMFSH Past Medical History Medical History No active medical problems Surgical History Surgical History H/O foot surgery Social History Social History Smoking status: Never smoker Exam Narrative: GENERAL: Well-appearing, well-nourished, no physical limitations, and in no acute distress. HEAD: Normocephalic, atraumatic. EYES: Conjunctivae normal, PERRLA and EOMI. CHEST: Clear to auscultation. No respiratory distress. No wheezes rales or rhonchi. HEART: Regular rate and rhythm. No murmur heard. Normal peripheral pulses. BACK: No cervical/thoracic/lumbar tenderness, step-offs, bony abnormality; FROM EXTREMITIES: Normal range of motion. Strength intact. Equal transportation associate bilaterally no edema. No clubbing or cyanosis SKIN: Warm, dry, no rash. No noted wounds NEURO: No focal deficits. Alert and oriented x3. MAEW. CN's II-XI intact bilaterally, normal gait PSYCH: Cooperative. Normal mood and affect. Course Vital Signs Vital signs: Vital Signs Temperature 37.4 C 02/25/22 16:13 Pulse Rate 77 02/25/22 16:13 Respiratory Rate 18 02/25/22 16:13 Blood Pressure 141/82 H 02/25/22 16:13 Pulse Oximetry 100 02/25/22 16:13 Temperature 37.4 C 02/25/22 16:13 Pulse Rate 77 02/25/22 16:13 Respiratory Rate 18 02/25/22 16:13 Blood Pressure 141/82 H 02/25/22 16:13 Pulse Oximetry 100 02/25/22 16:13 Discharge Plan Discharge Clinical Impression: Ulnar neuropathy at elbow of left upper extremity, Ulnar neuropathy at elbow of right upper extremity Patient Disposition: Home, Self-Care Condition: Stable Instructions: Antibiotic Form, Peripheral Neuropathy (ED) Prescriptions: New prednisone 20 mg tablet 60 mg PO DAILY Qty: 15 0RF methocarbamol 500 mg tablet 500 mg PO TID Qty: 20 0RF No Action ondansetron 4 mg tablet,disintegrating 4 mg PO Q6H PRN (Reason: nausea and vomiting) 3 Days Qty: 12 0RF Follow-up/Referrals: Demetrius Ortiz MD [Primary Care Provider] - Behzad Means MD [Physician] - Time of Disposition: 17:59
== END 2022-02-25 18:51 | disposition home or self-care (01) ==
PROVIDERS: Emergency Provider Nurse Practitioner Family; PCP Emergency Medicine
DX: G56.23 Lesion of ulnar nerve, bilateral upper limbs (principal)
CPT/HCPCS: 72040; 96372; 99283; J1100

== ENCOUNTER 2022-10-14 10:51 | Emergency (ER) | payer BC, SELFPAY ==
--- NOTE | ~2022-10-14 | XR_ITS ---
EXAMINATION: XR chest 2V DATE: 10/14/2022 11:36 INDICATION: Chest pain. TECHNIQUE: Frontal and lateral views of the chest were obtained. COMPARISON: Chest single view 11/11/2020 FINDINGS: The chest demonstrates clear lungs without pneumonia, pleural effusion, or pneumothorax. Th e heart size is normal. IMPRESSION: 1. No acute cardiopulmonary disease. Reviewed, dictated and finalized at location A.
--- NOTE | 2022-10-14 10:52 | ECG_ITS ---
Measurements Intervals [place] Rate: 78 P: 15 RI: 205 QRS: -11 QRSD: 97 T: 13 QT: 356 QTc: 406 Interpretive Statements SINUS RHYTHM DELAYED PRECORDIAL R/S TRANSITION VOLTAGE CRITERIA FOR LVH MINIMAL Q WAVES- HIGH LATERAL LEADS BASELINE ARTIFACT- I, III BORDERLINE ECG COMPARED TO ECG 11/11/2020 22:30:26 NO SIGNIFICANT CHANGES Electronically Signed On 10-14-2022 18:38:55 CDT by Jaime Peres D.O.
[2022-10-14 11:08] VITALS: BP 134/80; PULSE 64; RESP 16; TEMP 36.7; O2SAT 99
[2022-10-14 11:12] LABS: Basophils Absolute Auto 0.1 K/mm3 (0.0-0.1); Basophils Percent Auto 0.8 % (0.2-1.2); Eosinophils Absolute Auto 0.1 K/mm3 (0-0.3); Eosinophils Percent Auto 1.5 % (0-4.4); Hematocrit 42.9 % (42.0-52.0); Hemoglobin 14.4 g/dL (14.0-18.0); Immature Granulocyte Absolute 0.03 K/mm3 (0.00-0.031); Immature Granulocyte Percent A 0.4 % (0-0.5); Lymphocytes Percent Auto 30.2 % (18.3-44.2); Mean Corpuscular HGB Conc 33.6 g/dl (32-36); Mean Corpuscular Hemoglobin 28.5 pg (26-34); Mean Platelet Volume 10.7 fl (7.4-10.4); Monocytes Absolute Auto 0.9 K/mm3 (0.1-0.6); Monocytes Percent Auto 10.9 % (2.6-8.5); Neutrophils Absolute Auto 4.5 K/mm3 (1.3-6.7); Neutrophils Percent Auto 56.2 % (45.5-73.1); Platelet Count Result 229 k/mm3 (150-375); Red Blood Count 5.05 M/mm3 (4.6-6.20); Red Cell Distribution Width 15.1 % (11.5-14.5)
[2022-10-14 11:22] LABS: INR 0.9; Prothrombin Time 12.5 Seconds (11.1-14.7)
[2022-10-14 11:23] LABS: Partial Thromboplastin Time 29.6 SECONDS (22.3-36.8)
[2022-10-14] MEDS: ASPIRIN 81 MG CHEWABLE TABLET 324 MG PO (11:28)
[2022-10-14 11:30] LABS: Alanine Aminotransferase 34 U/L (6-50); Albumin Level 4.1 g/dL (3.5-5.1); Alkaline Phosphatase 93 U/L (38-126); Anion Gap 4 mmol/L (8-16); Aspartate Amino Transferase 27 U/L (17-59); Bilirubin,Total 0.5 mg/dL (0.2-1.3); Blood Urea Nitrogen 13 mg/dL (9-20); Calcium 9.1 mg/dL (8.4-10.2); Carbon Dioxide 27 mmol/L (22-30); Chloride 105 mmol/L (98-107); Estimated CRCL calculation 168 ml/min; Estimated Glomerular Filt Rate > 60; Glucose 89 mg/dL (65-110); Lipase 39 U/L (23-300); Potassium 4.8 mmol/L (3.4-5.0); Sodium 136 mmol/L (137-145)
[2022-10-14 11:32] VITALS: PULSE 71
[2022-10-14 11:41] LABS: Troponin I < 0.012 ng/mL (0.000-0.034)
--- NOTE | 2022-10-14 12:39 | ED.CHESTPAIN ---
HPI - Chest Pain General Chief Complaint: Chest Pain Stated Complaint: chest pain since last night Time Seen by Provider: 10/14/22 12:05 History of Present Illness HPI narrative: Patient is a 32-year-old male presenting with right-sided chest pain. Patient states that he works at a [employer] and he does a lot of heavy lifting at work. States that over the last day he has had right-sided chest pain that is worse with movements. Reports mild intermittent shortness of breath. He denies left-sided chest pain. No back pain. No headache, numbness or weakness, palpitations, abdominal pain, nausea or vomiting, leg swelling. Related Data Allergies Allergy/AdvReac Type Severity Reaction Status Date / Time No Known Allergies Allergy Verified 10/14/22 11:21 Review of Systems Review of Systems: All systems reviewed & are unremarkable except as noted in HPI and below PMFSH Past Medical History Medical History No active medical problems Surgical History Surgical History H/O foot surgery Social History Social History Smoking status: Never smoker Exam Narrative: GENERAL: Well-appearing, well-nourished, and in no acute distress. Pleasant and cooperative HEAD: Normocephalic, atraumatic. EYES: PERRLA and EOMI. ENT: Nares clear, no rhinorrhea or epistaxis. Mucous membranes moist. NECK: Supple. CHEST: No respiratory distress. HEART: Bradycardic, regular rhythm. + Right-sided anterior chest wall tenderness ABDOMEN: Soft, nontender, nondistended EXTREMITIES: Normal range of motion. No edema. SKIN: Warm, dry, no rash. NEURO: No focal deficits. Alert and oriented x3. PSYCH: Normal mood and affect. Course Vital Signs Vital signs: Vital Signs Temperature 98.0 F 10/14/22 11:08 Pulse Rate 64 10/14/22 11:08 Respiratory Rate 16 10/14/22 11:08 Blood Pressure 134/80 10/14/22 11:08 Pulse Oximetry 99 10/14/22 11:08 Oxygen Delivery Room Air 10/14/22 11:08 Temperature 98.0 F 10/14/22 11:08 Pulse Rate 69 10/14/22 13:01 Respiratory Rate 16 10/14/22 13:01 Blood Pressure 118/74 10/14/22 13:01 Pulse Oximetry 100 10/14/22 13:01 Oxygen Delivery Room Air 10/14/22 11:08 MDM - Chest Pain MDM Narrative Medical decision making narrative: Patient is a 32-year-old male presenting with right-sided chest pain. Vitals within normal limits. Patient is well-appearing and in no acute distress. Exam is remarkable for the above. PERC negative. He does have reproducible right-sided chest pain. His blood work is unremarkable. No leukocytosis. Normal renal function. Troponin is undetectable. Lipase is normal. EKG per my interpretation shows normal sinus rhythm, normal axis and intervals, no ST elevations or depressions. Chest x-ray shows no acute abnormalities. Given the tenderness on exam, the positional quality of the pain, and his job that involves a lot of heavy lifting, I suspect musculoskeletal pain as the cause of his symptoms. Advised Tylenol and ibuprofen. Will provide short course of Flexeril as needed. Appropriate supportive care discussed. Appropriate return precautions given. Patient voiced understanding and is agreeable with plan. Discharged in stable condition. Differential Diagnosis Differential diagnosis: Likely fracture of rib, pneumothorax, atypical chest pain, costochondritis and chest pain Medical Records Data Attestation: I reviewed the patient's medical records. Lab Data Attestation: I reviewed the patient's lab results. 10/14/22 11:06 10/14/22 11:06 Labs: Lab Results 10/14/22 Range/Units 11:06 WBC 8.0 (4.5-10.0) K/mm3 RBC 5.05 (4.6-6.20) M/mm3 Hgb 14.4 (14.0-18.0) g/dL Hct 42.9 (42.0-52.0) % MCV 85.0 (80-100) fl MCH 28.5 (26-34) pg MCHC 33.6
[2022-10-14] MEDS: ACETAMINOPHEN 500 MG TABLET 1000 MG PO (12:54)
[2022-10-14] MEDS: IBUPROFEN 400 MG TABLET 800 MG PO (12:54)
[2022-10-14 13:01] VITALS: BP 118/74; PULSE 69; RESP 16; O2SAT 100
== END 2022-10-14 13:03 | disposition home or self-care (01) ==
PROVIDERS: Emergency Provider Emergency Medicine; PCP Emergency Medicine
DX: R07.9 Chest pain, unspecified (principal)
CPT/HCPCS: 36415; 71046; 80053; 83690; 84484; 85025; 85610; 85730; 93005; 99284; A9270

== ENCOUNTER 2023-09-05 09:06 | Emergency (ER) | payer BC, SELFPAY ==
[2023-09-05] VITALS (8 sets, daily range): BP systolic 116–130; BP diastolic 68–75; PULSE 46–85; RESP 15–21; TEMP 36.4; O2SAT 97–100
--- NOTE | ~2023-09-05 | XR_ITS ---
EXAMINATION: XR chest 2V DATE: 09/05/2023 09:47 INDICATION: Chest pain. TECHNIQUE: Frontal and lateral views of the chest were obtained. COMPARISON: Chest 2 views 10/14/2022 FINDINGS: There is no pneumonia, pleural effusion, or pneumothorax. The heart size is normal. IMPRESSION: 1. No acute cardiopulmonary disease. Reviewed, dictated and finalized at location A.
--- NOTE | 2023-09-05 09:08 | ECG_ITS ---
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 Measurements Intervals [place] Rate: 47 P: 29 SD: 204 QRS: -7 QRSD: 100 T: 11 QT: 435 QTc: 385 Interpretive Statements SINUS BRADYCARDIA ABNORMAL ECG No previous ECG available for comparison Electronically Signed On 09-05-2023 12:59:25 CDT by Jaime Peres D.O.
--- NOTE | 2023-09-05 09:15 | ECG_ITS ---
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 Measurements Intervals [place] Rate: 75 P: 28 WI: 209 QRS: -11 QRSD: 96 T: 14 QT: 370 QTc: 415 Interpretive Statements SINUS RHYTHM MODERATE VOLTAGE CRITERIA FOR LVH, CONSIDER NORMAL VARIANT [MEETS CRITERIA IN ONE OF: R(aVL), S(V1), R(V5), R(V5/V6)+S(V1)] No previous ECG available for comparison Electronically Signed On 09-12-2023 13:33:29 CDT by Ivy Domingo M.D.
[2023-09-05] MEDS: ASPIRIN 81 MG CHEWABLE TABLET 324 MG PO (09:25)
[2023-09-05 09:28] LABS: Basophils Percent Auto 0.4 % (0.2-1.2); Eosinophils Absolute Auto 0.1 K/mm3 (0-0.3); Eosinophils Percent Auto 1.2 % (0-4.4); Hematocrit 41.8 % (42.0-52.0); Hemoglobin 13.8 g/dL (14.0-18.0); Immature Granulocyte Absolute 0.03 K/mm3 (0.00-0.031); Immature Granulocyte Percent A 0.4 % (0-0.5); Lymphocytes Absolute Auto 2.26 K/mm3 (0.9-3.2); Lymphocytes Percent Auto 30.4 % (18.3-44.2); Mean Corpuscular Hemoglobin 28.1 pg (26-34); Mean Corpuscular Volume 85.1 fl (80-100); Monocytes Absolute Auto 0.6 K/mm3 (0.1-0.6); Monocytes Percent Auto 7.9 % (2.6-8.5); Neutrophils Absolute Auto 4.4 K/mm3 (1.3-6.7); Neutrophils Percent Auto 59.7 % (45.5-73.1); Platelet Count Result 219 k/mm3 (150-375); Red Blood Count 4.91 M/mm3 (4.6-6.20); Red Cell Distribution Width 15.2 % (11.5-14.5); White Blood Count 7.4 K/mm3 (4.5-10.0)
[2023-09-05 09:39] LABS: INR 0.9; Prothrombin Time 12.9 Seconds (11.1-14.7)
[2023-09-05 09:47] LABS: Alanine Aminotransferase 27 U/L (6-50); Albumin Level 4.3 g/dL (3.5-5.1); Alkaline Phosphatase 100 U/L (38-126); Anion Gap 6 mmol/L (4-12); Aspartate Amino Transferase 23 U/L (17-59); Bilirubin,Total 0.4 mg/dL (0.2-1.3); Blood Urea Nitrogen 16 mg/dL (9-20); Calcium 9.1 mg/dL (8.4-10.2); Carbon Dioxide 23 mmol/L (22-30); Chloride 110 mmol/L (98-107); Estimated CRCL calculation 155 ml/min; Estimated Glomerular Filt Rate > 60; Glucose 120 mg/dL (65-110); Lipase 47 U/L (23-300); Potassium 3.9 mmol/L (3.4-5.0); Sodium 139 mmol/L (137-145)
[2023-09-05 09:59] LABS: Troponin I < 0.012 ng/mL (0.000-0.034)
--- NOTE | 2023-09-05 10:34 | ED.CHESTPAIN ---
HPI - Chest Pain General Chief Complaint: Chest Pain Stated Complaint: CHest pain Time Seen by Provider: 09/05/23 09:19 Source: patient Mode of arrival: ambulatory Limitations: no limitations History of Present Illness HPI narrative: This is a 33 year old male that presents to the ER for left sided chest pain. Ongoing intermittently over the last 3 days. Reports intermittent sharp pain. Pain is worsened with palpation of the area. Denies fever, cough, shortness of breath, or lower extremity edema. Related Data Allergies Allergy/AdvReac Type Severity Reaction Status Date / Time No Known Allergies Allergy Verified 09/05/23 09:16 Review of Systems Review of Systems: CONSTITUTIONAL: Denies fever CARDIOVASCULAR: Reports chest pain. Denies palpitations, or edema. RESPIRATORY: Denies dyspnea. All systems reviewed & are unremarkable except as noted in HPI and below PMFSH Past Medical History Medical History No active medical problems Surgical History Surgical History H/O foot surgery Social History Social History Smoking status: Never smoker Exam Narrative: GENERAL: Well-appearing, well-nourished, and in no acute distress. HEAD: Normocephalic, atraumatic. EYES: EOMI. NECK: Supple. No adenopathy or masses. No JVD CHEST: Clear to auscultation. No respiratory distress. No wheezes rales or rhonchi. Tender to palpation of the left, upper anterior chest wall HEART: Regular rate and rhythm. No murmur heard. Normal peripheral pulses. EXTREMITIES: Normal range of motion. No edema. SKIN: Warm, dry, no rash. NEURO: No focal deficits. Alert and oriented x3. PSYCH: Normal mood and affect Course Course Emergency Course: Patient updated on workup and agrees with plan of care Vital Signs Vital signs: Vital Signs Pulse Rate 85 09/05/23 09:10 Respiratory Rate 15 09/05/23 09:10 Blood Pressure 129/75 09/05/23 09:10 Pulse Oximetry 99 09/05/23 09:10 Oxygen Delivery Room Air 09/05/23 09:10 Pulse Rate 46 L 09/05/23 12:45 Respiratory Rate 16 09/05/23 12:45 Blood Pressure 130/69 09/05/23 12:45 Pulse Oximetry 100 09/05/23 12:45 Oxygen Delivery Room Air 09/05/23 09:10 MDM - Chest Pain MDM Narrative Medical decision making narrative: Patient presents to the emergency department for chest pain ongoing intermittently over the last couple of days. His vitals are stable. Cbc without leukocytosis. Does show normocytic anemia with hemoglobin of 13.8. Metabolic panel without concerning findings. Lipase is normal. Chest x-ray without acute cardiopulmonary abnormality. EKG without acute ST changes and his baseline and 3 hour troponin are negative. His heart score is 2. Pain likely more musculoskeletal in nature, as he is tender to palpation in the area. He is to follow up with his primary care doctor. He was given warnings to return to the ER Differential Diagnosis Differential diagnosis: Likely stable angina, atypical chest pain, costochondritis and other (Muscle strain) Lab Data Attestation: I reviewed the patient's lab results. 09/05/23 09:22 09/05/23 09:22 Labs: Lab Results 09/05/23 09/05/23 Range/Units 09:22 12:22 WBC 7.4 (4.5-10.0) K/mm3 RBC 4.91 (4.6-6.20) M/mm3 Hgb 13.8 L (14.0-18.0) g/dL Hct 41.8 L (42.0-52.0) % MCV 85.1 (80-100) fl MCH 28.1 (26-34) pg MCHC 33.0 (32-36) g/dl RDW 15.2 H (11.5-14.5) % Plt Count 219 (150-375) k/mm3 MPV 11.0 H (7.4-10.4) fl Immature Gran % (Auto) 0.4 (0-0.5) % Neut % (Auto) 59.7 (45.5-73.1) % Lymph % (Auto) 30.4 (18.3-44.2) % Ritchie % (Auto) 7.9 (2.6-8.5) % Eos % (Auto) 1.2 (0-4.4) % Baso % (Auto) 0.4 (0.2-1.2) % Lymph # (Auto) 2.26 (0.9-3.2) K/mm3 Ritchie # (Auto) 0.
[2023-09-05] MEDS: ACETAMINOPHEN 500 MG TABLET 1000 MG PO (10:51)
[2023-09-05] MEDS: KETOROLAC 15 MG/ML VIAL (*BKC) IV PUSH (10:52)
[2023-09-05 12:53] LABS: Troponin I < 0.012 ng/mL (0.000-0.034)
== END 2023-09-05 13:28 | disposition home or self-care (01) ==
PROVIDERS: Student in an Organized Health Care Education/Training Program; Emergency Provider Physician Assistant
DX: R07.9 Chest pain, unspecified (principal); D64.9 Anemia, unspecified; R00.1 Bradycardia, unspecified
CPT/HCPCS: 36415; 71046; 80053; 83690; 84484; 85025; 85610; 85730; 93005; 96374; 99284; A9270; J1885

== ENCOUNTER 2023-12-20 12:42 | Emergency (ER) | payer SELFPAY ==
--- NOTE | ~2023-12-20 | CT_ITS ---
EXAMINATION: CTA brain DATE: 12/20/2023 16:29 INDICATION: Right temporal pulsation. TECHNIQUE: Computed tomographic angiography (CTA) of the head was performed with 100 mL Omnipaque-350 intravenous contrast. Automated exposure control and iterative reconstruction technique were employe d. The dose-length product was 478.91 mGy-cm. Maximum intensity projection 3D reconstructions were c reated. Volume-rendered 3D reconstructions of the intracranial arteries were created by the technolog ist on a separate workstation. COMPARISON: Head CT 12/20/2023 FINDINGS: There is no intracranial hemorrhage, acute infarction, or abnormal intracranial mass lesion . The ventricles are normal in size. There is a mucous retention cyst in left maxillary sinus. The ma stoid air cells are normal. The orbits are normal. The vertebral arteries are codominant. There is no significant stenosis of basilar artery or the posterior cerebral arteries. There is no significant s tenosis of the intracranial internal carotid arteries or anterior or middle cerebral arteries. Anteri or communicating artery is normal. The posterior communicating arteries are normal. There is no aneur ysm. IMPRESSION: 1. Normal brain. 2. No aneurysm or significant intracranial arterial stenosis. Reviewed, dictated and finalized at location A.
--- NOTE | ~2023-12-20 | CT_ITS ---
EXAMINATION: CT brain wo con DATE: 12/20/2023 14:49 INDICATION: Right face throbbing. TECHNIQUE: Computed tomography (CT) of the head was performed without intravenous contrast. The mA wa s adjusted according to patient size. Iterative reconstruction technique was employed. The dose-lengt h product was 605.33 mGy-cm. COMPARISON: None FINDINGS: There is no intracranial hemorrhage, acute infarction, or abnormal intracranial mass lesion . The ventricles are normal in size. There is mucosal thickening in the paranasal sinuses. There is a normal. The mastoid air cells are normal. IMPRESSION: 1. Normal brain. Reviewed, dictated and finalized at location A. IMPRESSION: 1. Normal brain.
[2023-12-20 12:49] VITALS: BP 138/80; PULSE 74; RESP 16; TEMP 36.8; O2SAT 100
--- NOTE | 2023-12-20 14:28 | ED.HA ---
HPI - Headache General Chief Complaint: Headache <Maritza Greenfield PA-C - Last Filed: 12/20/23 14:35> Stated Complaint: weird pulse in my jehovah's witness <Maritza Greenfield PA-C - Last Filed: 12/20/23 14:35> Time Seen by Provider: 12/20/23 14:29 <Maritza Greenfield PA-C - Last Filed: 12/20/23 14:35> Focused HPI: Patient is a 33 y/o male who presents the ED with report of a throbbing sensation to his right temporal region. Patient reports the throbbing has been ongoing for the last 3 days. Is intermittent, lasts for a few seconds at a time. No aggravating or alleviating factors to the sensation. Denies significant pain, pain with opening and closing jaw, headache, dizziness, lightheadedness, vision changes, ear pain. Denies focal numbness/weakness. GENERAL: Well-appearing, morbidly obese with BMI of 46.8, and in no acute distress. HEAD: Normocephalic, atraumatic. No CHEST: Clear to auscultation. ?No respiratory distress. HEART: Regular rate and rhythm.? NEURO: ?Alert and oriented x3. Patient screened in triage and initial orders placed.? ?Additional care and disposition to be based upon?diagnostic testing and treatment. <Maritza Greenfield PA-C - Last Filed: 12/20/23 14:35> History of Present Illness HPI Narrative: Concur with the above with the following additions/corrections: Patient presents with complaint that he can feel a pulsatile sensation in his right jehovah's witness occurring intermittently for the past 3 days. No tinnitus. Denies recreational drug use except marijuana. Episodes last a few seconds each. Uses marijuana but denies other recreational drugs including no cocaine. No associated headache or eye pain. No pain at the jehovah's witness. Describes it as throbbing. No jaw pain or worsening of nelson with jaw opening/closure. No vision changes including no diplopia or flashes/floaters. He had been told her had borderline hypertension at one time but not on meds. Patient's PCP is Hazel Cano. <Ines Briceño MD - Last Filed: 12/21/23 00:34> Related Data Allergies/Adverse Reactions: Allergies Allergy/AdvReac Type Severity Reaction Status Date / Time No Known Allergies Allergy Verified 12/20/23 12:54 <Maritza Greenfield PA-C - Last Filed: 12/20/23 14:35> PMFSH Past Medical History Medical History: Medical History No active medical problems <Maritza Greenfield PA-C - Last Filed: 12/20/23 14:35> Surgical History Surgical History: Surgical History H/O foot surgery <Maritza Greenfield PA-C - Last Filed: 12/20/23 14:35> Social History Social History: Social History Smoking status: Never smoker Substance use: current Substance use type: marijuana Other substance usage details: Denies other recreational drugs <Maritza Greenfield PA-C - Last Filed: 12/20/23 14:35> Exam Narrative: GENERAL: Well-appearing, well-nourished, and in no acute distress. HEAD: Normocephalic, atraumatic. No tenderness to palpation of jehovah's witness. EYES: Non injected, non icteric. Pupils 2mm bilaterally. In the dark, remain small, only opening to approximately 4mm thus unable to perform fundoscopic exam though attempted. No proptosis or ptosis. ENT: Nares clear, no rhinorrhea or epistaxis. Bilateral TMs easily visualized and normal without effusion/bulging/erythema. NECK: Supple. CHEST: Speaking in full sentences. No respiratory distress. HEART: Regular rate and rhythm. . ABDOMEN: Soft, nondistended. EXTREMITIES: Normal range of motion. No lower extremity edema. SKIN: Warm, dry, no rash. NEURO: No focal deficits. Alert and oriented x3. PSYCH: Normal mood and affect. <Ines Briceño MD - Last Filed: 12/21/23 00:34> Course Vital Signs Vital signs: Vital Signs Temperature 98.3 F
--- NOTE | 2023-12-20 15:23 | ECG_ITS ---
Test Date: 2023-12-20 15:46:37 Measurements Intervals [place] Rate: 66 P: 32 [place]: 201 QRS: -3 QRSD: 102 T: 15 QT: 385 QTc: 405 Interpretive Statements SINUS RHYTHM NORMAL ECG Compared to ECG 09/05/2023 12:31:45 HEART RATE HAS INCREASED Electronically Signed On 12-20-2023 16:11:13 CDT by Jaime Peres D.O.
[2023-12-20 15:58] LABS: Basophils Absolute Auto 0.1 K/mm3 (0.0-0.1); Basophils Percent Auto 0.6 % (0.2-1.2); Eosinophils Percent Auto 0.4 % (0-4.4); Hematocrit 43.2 % (42.0-52.0); Hemoglobin 14.5 g/dL (14.0-18.0); Immature Granulocyte Absolute 0.06 K/mm3 (0.00-0.031); Immature Granulocyte Percent A 0.6 % (0-0.5); Lymphocytes Absolute Auto 2.39 K/mm3 (0.9-3.2); Lymphocytes Percent Auto 23.8 % (18.3-44.2); Mean Corpuscular HGB Conc 33.6 g/dl (32-36); Mean Corpuscular Hemoglobin 28.5 pg (26-34); Mean Platelet Volume 10.9 fl (7.4-10.4); Monocytes Absolute Auto 0.8 K/mm3 (0.1-0.6); Neutrophils Absolute Auto 6.7 K/mm3 (1.3-6.7); Neutrophils Percent Auto 66.6 % (45.5-73.1); Platelet Count Result 249 k/mm3 (150-375); Red Blood Count 5.08 M/mm3 (4.6-6.20); Red Cell Distribution Width 14.8 % (11.5-14.5)
[2023-12-20 16:08] LABS: Anion Gap 11 mmol/L (4-12); Blood Urea Nitrogen 13 mg/dL (9-20); Calcium 9.4 mg/dL (8.4-10.2); Carbon Dioxide 25 mmol/L (22-30); Chloride 102 mmol/L (98-107); Estimated CRCL calculation 152 ml/min; Estimated Glomerular Filt Rate > 60; Glucose 95 mg/dL (65-110); Potassium 4.3 mmol/L (3.4-5.0); Sodium 138 mmol/L (137-145)
[2023-12-20 16:37] LABS: Thyroid Stimulating Hormone 0.643 uIU/mL (0.465-4.680)
[2023-12-20 17:07] VITALS: BP 143/96; PULSE 71; RESP 18; O2SAT 98
== END 2023-12-20 17:09 | disposition home or self-care (01) ==
PROVIDERS: Emergency Provider Student in an Organized Health Care Education/Training Program
DX: R51.9 Headache, unspecified (principal)
CPT/HCPCS: 36415; 70450; 70496; 80048; 84443; 85025; 93005; 99284; Q9967

== ENCOUNTER 2024-08-31 13:33 | Emergency (ER) | payer SELFPAY ==
--- NOTE | ~2024-08-31 | XR_ITS ---
CHEST RADIOGRAPH, PA AND LATERAL CLINICAL HISTORY: CONGESTION . COMPARISON: 09/05/2023 TECHNIQUE: PA and lateral views of the chest. FINDINGS The cardiomediastinal silhouette is unremarkable. The lungs are clear. Visualized osseous structures and soft tissues are unremarkable. IMPRESSION: No focal infiltrate or effusion. Reviewed, dictated and finalized at location A.
--- NOTE | 2024-08-31 13:34 | ECG_ITS ---
Test Date: 2024-08-31 13:38:15 Measurements Intervals [place] Rate: 85 P: 24 [place]: 204 QRS: -12 QRSD: 105 T: 7 QT: 350 QTc: 417 Interpretive Statements SINUS RHYTHM POOR R-WAVE PROGRESSION Compared to ECG 12/20/2023 15:46:37 POOR R-WAVE PROGRESSION IS NEW Electronically Signed On 08-31-2024 15:06:10 CDT by James Marin M.D.
--- NOTE | 2024-08-31 13:35 | ED.CHESTPAIN ---
HPI - Chest Pain General Chief Complaint: Chest Pain <Lee Ann Salazar PA-C - Last Filed: 08/31/24 13:38> Stated Complaint: Chest pain <Lee Ann Salazar PA-C - Last Filed: 08/31/24 13:38> Time Seen by Provider: 08/31/24 16:13 <Lee Ann Salazar PA-C - Last Filed: 08/31/24 13:38> Focused HPI: 34-year-old male with no past medical history presents to emergency department for chest pain since yesterday. Patient states the pain is in the middle of his chest and occurs when he coughs, better when he lays down. He describes the pain as a tightness. He reports a nonproductive cough and shortness of breath. Denies recent sick contacts. Denies lower extremity edema history of VTE, hemoptysis, recent surgeries or hospitalizations. No personal history of cardiac disease. States his father has a history of heart disease. GENERAL: Well-appearing, well-nourished, and in no acute distress. HEAD: Normocephalic, atraumatic. CHEST: Clear to auscultation. ?No respiratory distress. Tenderness to costosternal border bilaterally without overlying crepitus step-offs or deformities HEART: Regular rate and rhythm.? NEURO: ?Alert and oriented x3. Patient screened in triage and initial orders placed.? ?Additional care and disposition to be based upon?diagnostic testing and treatment. <Lee Ann Salazar PA-C - Last Filed: 08/31/24 13:38> History of Present Illness HPI narrative: I agree with the above HPI <Rafat Mendoza MD - Last Filed: 08/31/24 18:54> Related Data Allergies/Adverse Reactions: Allergies Allergy/AdvReac Type Severity Reaction Status Date / Time No Known Allergies Allergy Verified 08/31/24 15:17 <Lee Ann Salazar PA-C - Last Filed: 08/31/24 13:38> Review of Systems Review of Systems: All systems reviewed & are unremarkable except as noted in HPI and below <Rafat Mendoza MD - Last Filed: 08/31/24 18:54> PMFSH Past Medical History Medical History: Medical History No active medical problems <Lee Ann Salazar PA-C - Last Filed: 08/31/24 13:38> Surgical History Surgical History: Surgical History H/O foot surgery <Lee Ann Salazar PA-C - Last Filed: 08/31/24 13:38> Social History Social History: Social History Smoking status: Never smoker Substance use: current Substance use type: marijuana Other substance usage details: Denies other recreational drugs <Lee Ann Salazar PA-C - Last Filed: 08/31/24 13:38> Course Vital Signs Vital signs: Vital Signs Temperature 97.8 F 08/31/24 13:40 Pulse Rate 84 08/31/24 13:40 Respiratory Rate 15 08/31/24 13:40 Blood Pressure 137/83 08/31/24 13:40 Pulse Oximetry 99 08/31/24 13:40 Oxygen Delivery Room Air 08/31/24 13:40 Temperature 97.8 F 08/31/24 13:40 Pulse Rate 80 08/31/24 15:16 Respiratory Rate 20 08/31/24 15:16 Blood Pressure 125/89 08/31/24 15:16 Pulse Oximetry 100 08/31/24 15:16 Oxygen Delivery Room Air 08/31/24 15:14 <Lee Ann Salazar PA-C - Last Filed: 08/31/24 13:38> Vital Signs Temperature 97.8 F 08/31/24 13:40 Pulse Rate 84 08/31/24 13:40 Respiratory Rate 15 08/31/24 13:40 Blood Pressure 137/83 08/31/24 13:40 Pulse Oximetry 99 08/31/24 13:40 Oxygen Delivery Room Air 08/31/24 13:40 Temperature 97.8 F 08/31/24 13:40 Pulse Rate 80 08/31/24 15:16 Respiratory Rate 20 08/31/24 15:16 Blood Pressure 125/89 08/31/24 15:16 Pulse Oximetry 100 08/31/24 15:16 Oxygen Delivery Room Air 08/31/24 15:14 <Rafat Mendoza MD - Last Filed: 08/31/24 18:54> MDM - Chest Pain MDM Narrative Medical decision making narrative: 34-year-old male presents to the emergency department for evaluation for chest pain with coughing after 3 days of upper respiratory infection. Patient is currently afebrile with no leukocytosis hemoglobin of 13.2. Patient's INR is 1.0. No acute abnormalities on his CMP and patient had negative serial troponins negative serial EKGs. Patient was negative for influenza RSV and for COVID. Chest x-ray shows no acute cardiopulmonary abnormality. Patient did feel improved with Toradol. <Rafat Mendoza MD - Last Filed: 08/31/24 18:54> Differential Diagnosis Differential diagnosis: Likely fracture of rib, pneumothorax, unstable angina pectoris, atypical chest pain, costochondritis, chest pain and biliary colic <Rafat Mendoza MD - Last Filed: 08/31/24 18:54> Lab Data Attestation: I reviewed the patient's lab results. <Rafat Mendoza MD - Last Filed: 08/31/24 18:54> Result diagrams: 08/31/24 13:49 08/31/24 13:49 <Lee Ann Salazar PA-C - Last Filed: 08/31/24 13:38> Labs: Lab Results 08/31/24 08/31/24 Range/Units 13:49 16:41 WBC 9.5 (4.5-10.0) K/mm3 RBC 4.69 (4.6-6.20) M/mm3 Hgb 13.2 L (14.0-18.0) g/dL Hct 40.5 L (42.0-52.0) % MCV 86.4 (80-100) fl MCH 28.1 (26-34) pg MCHC 32.6 (32-36) g/dl RDW 14.9 H (11.5-14.5) % Plt Count 214 (150-375) k/mm3 MPV 10.7 H (7.4-10.4) fl Immature Gran % (Auto) 0.4 (0-0.5) % Neut % (Auto) 70.5 (45.5-73.1) % Lymph % (Auto) 19.3 (18.3-44.2) % Bibb % (Auto) 7.3 (2.6-8.5) % Eos % (Auto) 2.0 (0-4.4) % Baso % (Auto) 0.5 (0.2-1.2) % Lymph # (Auto) 1.82 (0.9-3.2) K/mm3 Bibb # (Auto) 0.7 H (0.1-0.6) K/mm3 Eos # (Auto) 0.2 (0-0.3) K/mm3 Baso # (Auto) 0.1 (0.0-0.1) K/mm3 Abs Immat Gran (auto) 0.04 H (0.00-0.031) K/mm3 Absolute Neuts (auto) 6.7 (1.3-6.7) K/mm3 Absolute Nucleated RBC 0.000 (0.0-0.012) K/mm3 Nucleated RBC % 0.0 (0.0-0.2) % PT 13.6 (11.1-14.7) Seconds INR 1.0 APTT 26.8 (22.3-36.8) Seconds Sodium 140 (137-145) mmol/L Potassium 3.6 (3.4-5.0) mmol/L Chloride 106 (98-107) mmol/L Carbon Dioxide 29 (22-30) mmol/L Anion Gap 5 (4-12) mmol/L BUN 8 L D (9-20) mg/dL Creatinine 0.91 (0.7-1.3) mg/dL Estim Creat Clear Calc 145 ml/min Estimated GFR > 60 (59 - ) Glucose 107 (65-110) mg/dL Calcium 8.6 (8.4-10.2) mg/dL Total Bilirubin 0.6 (0.2-1.3) mg/dL AST 22 (17-59) U/L ALT 25 (6-50) U/L Alkaline Phosphatase 93 (38-126) U/L Troponin I < 0.012 < 0.012 (0.000-0.034) ng/mL Total Protein 7.0 (6.3-8.2) g/dL Albumin 3.7 (3.5-5.1) g/dL Lipase 23 (23-300) U/L Influenza A (RT-PCR) Negative (Negative) Influenza B (RT-PCR) Negative (Negative) RSV (RT-PCR) Negative (Negative) SARS-CoV-2 RNA (RT-PCR) Negative (Negative) <Lee Ann Salazar PA-C - Last Filed: 08/31/24 13:38> Lab Results 08/31/24 08/31/24 Range/Units 13:49 16:41 WBC 9.5 (4.5-10.0) K/mm3 RBC 4.69 (4.6-6.20) M/mm3 Hgb 13.2 L (14.0-18.0) g/dL Hct 40.5 L (42.0-52.0) % MCV 86.4 (80-100) fl MCH 28.1 (26-34) pg MCHC 32.6 (32-36) g/dl RDW 14.9 H (11.5-14.5) % Plt Count 214 (150-375) k/mm3 MPV 10.7 H (7.4-10.4) fl Immature Gran % (Auto) 0.4 (0-0.5) % Neut % (Auto) 70.5 (45.5-73.1) % Lymph % (Auto) 19.3 (18.3-44.2) % Bibb % (Auto) 7.3 (2.6-8.5) % Eos % (Auto) 2.0 (0-4.4) % Baso % (Auto) 0.5 (0.2-1.2) % Lymph # (Auto) 1.82 (0.9-3.2) K/mm3 Bibb # (Auto) 0.7 H (0.1-0.6) K/mm3 Eos # (Auto) 0.2 (0-0.3) K/mm3 Baso # (Auto) 0.1 (0.0-0.1) K/mm3 Abs Immat Gran (auto) 0.04 H (0.00-0.031) K/mm3 Absolute Neuts (auto) 6.7 (1.3-6.7) K/mm3 Absolute Nucleated RBC 0.000 (0.0-0.012) K/mm3 Nucleated RBC % 0.0 (0.0-0.2) % PT 13.6 (11.1-14.7) Seconds INR 1.0 APTT 26.8 (22.3-36.8) Seconds Sodium 140 (137-145) mmol/L Potassium 3.6 (3.4-5.0) mmol/L Chloride 106 (98-107) mmol/L Carbon Dioxide 29 (22-30) mmol/L Anion Gap 5 (4-12) mmol/L BUN 8 L D (9-20) mg/dL Creatinine 0.91 (0.7-1.3) mg/dL Estim Creat Clear Calc 145 ml/min Estimated GFR > 60 (59 - ) Glucose 107 (65-110) mg/dL Calcium 8.6 (8.4-10.2) mg/dL Total Bilirubin 0.6 (0.2-1.3) mg/dL AST 22 (17-59) U/L ALT 25 (6-50) U/L Alkaline Phosphatase 93 (38-126) U/L Troponin I < 0.012 < 0.012 (0.000-0.034) ng/mL Total Protein 7.0 (6.3-8.2) g/dL Albumin 3.7 (3.5-5.1) g/dL Lipase 23 (23-300) U/L Influenza A (RT-PCR) Negative (Negative) Influenza B (RT-PCR) Negative (Negative) RSV (RT-PCR) Negative (Negative) SARS-CoV-2 RNA (RT-PCR) Negative (Negative) <Rafat Mendoza MD - Last Filed: 08/31/24 18:54> Imaging Data Radiologist's impression: Impressions Chest X-Ray 08/31/24 14:17 IMPRESSION: No focal infiltrate or effusion. <Rafat Mendoza MD - Last Filed: 08/31/24 18:54> ECG Data EKG #1: EKG Interpretation: normal rate, sinus rhythm, no ectopy, non-specific ST changes, normal QT and NL axis <Rafat Mendoza MD - Last Filed: 08/31/24 18:54> Discharge Plan Discharge Clinical Impression: Atypical chest pain, Chest pain, pleuritic <Lee Ann Salazar PA-C - Last Filed: 08/31/24 13:38> Patient Disposition: Home <Lee Ann Salazar PA-C - Last Filed: 08/31/24 13:38> Condition: Stable <Lee Ann Salazar PA-C - Last Filed: 08/31/24 13:38> Instructions: Antibiotic Form, Chest Pain (ED), Pleurisy (ED) <Lee Ann Salazar PA-C - Last Filed: 08/31/24 13:38> Additional Instructions: Ibuprofen for pleuritic type chest pain. Have close follow-up with your primary care physician for additional outpatient cardiac workup. If you have any worsening symptoms then please call or return to the emergency department. <Lee Ann Salazar PA-C - Last Filed: 08/31/24 13:38> Patient Language: Malagasy <Lee Ann Salazar PA-C - Last Filed: 08/31/24 13:38> Prescriptions: No Action acetaminophen [Tylenol Extra Strength] 500 mg tablet 1,000 mg PO TID PRN (Reason: pain) Qty: 30 0RF ibuprofen 800 mg tablet 800 mg PO TID PRN (Reason: pain) Qty: 30 0RF cyclobenzaprine 10 mg tablet 10 mg PO HS PRN (Reason: muscle spasm) Qty: 10 0RF <Lee Ann Salazar PA-C - Last Filed: 08/31/24 13:38> Follow-up/Referrals: UNKNOWN,DOCTOR [Primary Care Provider] - <Lee Ann Salazar PA-C - Last Filed: 08/31/24 13:38> Stand Alone Forms: Work/School Release IP <Lee Ann Salazar PA-C - Last Filed: 08/31/24 13:38> Quality HEART score for chest pain patients History: slightly suspicious <Rafat Mendoza MD - Last Filed: 08/31/24 18:54> ECG: normal <Rafat Mendoza MD - Last Filed: 08/31/24 18:54> Age: < or = to 45 years <Rafat Mendoza MD - Last Filed: 08/31/24 18:54> Risk factors: 1 or 2 risk factors <Rafat Mendoza MD - Last Filed: 08/31/24 18:54> Troponin: < or = to 1x normal limit <Rafat Mendoza MD - Last Filed: 08/31/24 18:54> Heart score: 1 <Rafat Mendoza MD - Last Filed: 08/31/24 18:54>
--- OUTSIDE RECORDS SUMMARY | 2024-08-31 13:35 | XMS_ITS | Data Portability ---
Author Organization [facility] CS/KV/SMSAgustín Randolph SI (06) Address [address] [address] Care Team Providers Care Inner Tube Cutter Name Role Phone JESÚSRODNEYGtMELITON CODI Referring Provider Assessment No assessment recorded. Plan of Treatment Reminders Order Date Submit Date Provider Last Modified By Organization Details Last Modified Time Details Appointments None record ed. Lab None record ed. Referral None record ed. Procedures None record ed. Surgeries None record ed. Imaging None record ed. Medication Orders None record ed. Patient TargetsNo targets recorded. Patient InstructionsNo instructions recorded. Reason for Referral None Reported. Procedures Surgical History Date Name Laterality Status Provider Name and Address Organization Details Recorded Time 03/05/2017 Sleep Study completed Onel Camejo MD, F.C.C.P. [address] [place] [address], [place], [address], [facility] CS/KV/SMS 03/06/2017 14:03:03 Imaging Results None recorded. Procedure Notes None recorded. Medical Equipment None Reported. Vitals Date Recorded Body height Body mass index (BMI) Body weight Provider Name and Address Organization Details Last Updated DateTime 03/05/2017 172.72 cm 51.4 kg/m2 315404.22 g Oz Rebolledo MD - CSI/KV/SMSC 03/05/2017 19:54:37 Social History None recorded. Functional Status None recorded. Mental Status None recorded. Family History Nothing Reported. Medical History No medical history recorded. Past Encounters Encounter ID Performer Location Encounter Start Date Encounter Closed Date Diagnosis/Indication Diagnosis SNOMED-CT Code Diagnosis ICD10 Code Diagnosis Note [id number] [facility], [facility] ([facility]) [address] [place] [address] 03/05/2017 19:32:57 03/06/2017 13:52:16 Obstructive sleep apnea of adult 7401300826 103 G47.33 Health Concerns Section Related Observation LastModified by Organization Detai ls LastModified Time None Recorded Concern Status LastModified by Organization Details LastModified Time None Recorded Advance Directives Directive None Recorded Payers Insurance Date Sequence Insurance Name Policy Number Policy [place] Covered Member ID [place] Member ID Guarantor Name 02/11/2017 1 *SELF PAY* Lobito Solis Notes Date Note Type Note Provider Name and Address Organization Details Recorded Time 03/05/2017 text/html HST SetupReporte d [email or web address].HST set upDemonstrated to patient how to set up Home Sleep Test Device. The patient was able to return demonstration with out difficulty.; The patient is returning the device the following morning.; DOT protocol was used for setup and ensuring proper chain of custody. Onel Camejo MD, F.C.C.P. [address] [address], [place], [address], [facility] - CSI/KVH/SMS 03/06/2017 14:03:07
--- OUTSIDE RECORDS SUMMARY | 2024-08-31 13:35 | XMS_ITS | CONTINUITY OF CARE DOCUMENT ---
Author Name foxalysa foxalysa Address Unknown Organization [facility] Address [address] [place] [address] Phone [phone] Care Team Providers Care Reinsurance Clerk Name Role Phone Sun SAUNDERS, Melia Amato Unavailable [phone] ML PATIÑO MD Unavailable [phone] ML PATIÑO MD Unavailable [phone] PROBLEMS Condition Status Date Provider Notes Cardiology examination active Melia oneil MD Hyperlipidemia active Melia Garsia MD Chest pain active Melia Garsia MD Family Hx heart disease active Melia treadwell MD Obesity active Melia Garsia MD ENCOUNTERS Date Type Provider Location Encounter Diag nosis - In-person encounter Office Visit Melia Garsia MD [facility] Cardiology examinationHyperlipidemiaChest painFamily Hx heart diseaseObesity VITAL SIGNS Date Observation Value Provider Body Mass Index (Ratio) 43.12 kg/m2 Homer Garsia MD weight E&M 318 [lb_av] Ines Munoz in height E&M 72 [in_i] Ines Munoz in blood pressure, diastolic 75 mm[Hg] Darya nkLogic blood pressure, systolic 130 mm[Hg] Gayle kLogic blood pressure, cuff size regular Ja rret Easterday blood pressure, diastolic 75 mm[Hg] Darren ya blood pressure, systolic 130 mm[Hg] Chino rodriguez pulse rate 84 /min León y respiratory rate E&M 12 /min León oxygen saturation, oximetry 98 % León height E&M 72 [in_i] León y weight E&M 318 [lb_av] León y ALLERGIES No Known Drug Allergies HISTORY OF MEDICATION USE Medication Status Instructions Dates Provider Indications Com ments simvastatin 20 mg tablet active Take 1 tablet by mouth once a day Jocelyne Lugo NP acetaminophen 500 mg capsule active Take 2 tablets by mouth three times daily as needed Jocelyne Lugo NP cyclobenzaprine 10 mg tablet active Take 1 tablet at bedtime as needed Jocelyne Lugo NP IBU 800 mg tablet active Take 1 tablet three times daily as needed Jocelyne Lugo NP SOCIAL HISTORY Date Observation Value Provider social history reviewed E&M revi ewed - no changes required Jocelyne Lugo NP social history E&M S moking History: Gt rabago has never smoked. Jocelyne Lugo NP drug use, illicit, d rug of choice marijuana Jocelyne Lugo NP drug use yes Jocelnye Lugo NP alcohol use no Jocelyne Lugo NP smoking status Never smoker Jocelyne Pendleton i, NP INSURANCE PROVIDERS Payer name Policy type / Coverage type [place] red green party ID [facility] [id number] ADVANCE DIRECTIVES Name Date DISCUSSED - NO DECISION MADE TREATMENT PLAN Date Name Performer [id number],C,W ill order echo to assess cardiac structure Jocelyne Lugo NP [id number],C, D iscussed healthy dieatry choices and weight loss measures. He currently has started belgica back to the gym starting Saturday this week. Jocelyne Lugo NP [id number],C, Gt rabago's father from an [place]. He also had HF. He was in his 60s at the time of his . Jocelyne Lugo NP [id number],C, His updated medication list for this problem includes: Simvastatin 20 Mg Tablet (Simvastatin) ..... Take 1 tablet by mouth once a day Jocelyne Lugo NP [id number],C, Gt rabago was having some sharp right sided chest pain which has since resolved. The pain started while he was in bed moving his R shoulder. W ILL ARRANGE FOR TREADMILL STRESS AND CT SCAN OF THE RIGHT SHOULDER Jocelyne Lugo NP Cardiology:Will order echo to as sess cardiac structure Jocelyne Lugo NP Cardiology: D iscussed healthy dieatry choices and weight loss measures. He currently has started belgica back to the gym starting Saturday this week. Jocelyne Lugo NP Cardiology: Gt rabago's father from an [place]. He also had HF. He was in his 60s at the time of his . Jocelyne Lugo NP Cardiology: His updated medication list for this problem includes: Simvastatin 20 Mg Tablet (Simvastatin) ..... Take 1 tablet by mouth once a day Jocelyne Lugo NP Cardiology: Gt rabago was having some sharp right sided chest pain which has since resolved. The pain started while he was in bed moving his R shoulder. W ILL ARRANGE FOR TREADMILL STRESS AND CT SCAN OF THE RIGHT SHOULDER Jocelyne Lugo NP Date Name CT Upper Extremity w ithout contrast X-Ray, Shoulder Complete Echo Stress Routine HISTORY OF PROCEDURES Procedure Date Procedure Name Provider Procedure Notes S tatus EKG Melia Garsia MD compl eted
--- OUTSIDE RECORDS SUMMARY | 2024-08-31 13:35 | XMS_ITS | Clinical Summary ---
Author Organization [facility] Care Team Providers Care Service Order Clerk Name Role Phone Unavailable Primary Care Provider Unavailabl e Immunizations Immunization Administration Dates Next Due Covid-19, Mrna, Lnp-s, Pf, 30 Mcg/0.3 Ml Dose (Gt dela cruz) 01/19/2021,12/29/2020 Social History Tobacco Use Types Packs/Day Years Used Date Smoking Tobacco: Never Assessed Sex and Gender Information Value Date Recorded Sex Assigned at Not on file Legal Sex Male 12:48 PM CDT Gender Identity Not on file Sexual Orientation Not on file Plan of Treatment Health Maintenance Due Date Last Done Comments Hepatitis C Virus (HCV) Screening 1989 TdaP Immunization 1989 Hepatitis B Immunization (1 of 3 - 19+ 3-dose series) 2008 Influenza Immunization (#1) 2023 SARS-COV-2 Immunization (3 - 2023- season) 2023 01/19/2021, 12/29/2020 Respiratory Syncytial Virus (RSV) Immunization (Adult) (1 - 1-dose 75+ series) 2064 DTaP/Tdap/Td Immunization Discontinued 1990, 1989, 1989, Additional history exists Meningococcal Immunization (ACWY) Aged Out No longer eligible based on patient's age to complete this topic Pneumococcal Immunization Combined Aged Out No longer eligible based on patient's age to complete this topic Rotavirus Immunization Aged Out No lo nger eligible based on patient's age to complete this topic
[2024-08-31 13:40] VITALS: BP 137/83; PULSE 84; RESP 15; TEMP 36.6; O2SAT 99
[2024-08-31 13:56] LABS: Basophils Absolute Auto 0.1 K/mm3 (0.0-0.1); Basophils Percent Auto 0.5 % (0.2-1.2); Eosinophils Absolute Auto 0.2 K/mm3 (0-0.3); Hematocrit 40.5 % (42.0-52.0); Hemoglobin 13.2 g/dL (14.0-18.0); Immature Granulocyte Absolute 0.04 K/mm3 (0.00-0.031); Immature Granulocyte Percent A 0.4 % (0-0.5); Lymphocytes Absolute Auto 1.82 K/mm3 (0.9-3.2); Lymphocytes Percent Auto 19.3 % (18.3-44.2); Mean Corpuscular HGB Conc 32.6 g/dl (32-36); Mean Corpuscular Hemoglobin 28.1 pg (26-34); Mean Corpuscular Volume 86.4 fl (80-100); Mean Platelet Volume 10.7 fl (7.4-10.4); Monocytes Absolute Auto 0.7 K/mm3 (0.1-0.6); Monocytes Percent Auto 7.3 % (2.6-8.5); Neutrophils Absolute Auto 6.7 K/mm3 (1.3-6.7); Neutrophils Percent Auto 70.5 % (45.5-73.1); Platelet Count Result 214 k/mm3 (150-375); Red Blood Count 4.69 M/mm3 (4.6-6.20); Red Cell Distribution Width 14.9 % (11.5-14.5); White Blood Count 9.5 K/mm3 (4.5-10.0)
[2024-08-31 14:06] LABS: Prothrombin Time 13.6 Seconds (11.1-14.7)
[2024-08-31 14:07] LABS: Partial Thromboplastin Time 26.8 Seconds (22.3-36.8)
[2024-08-31 14:13] LABS: Alanine Aminotransferase 25 U/L (6-50); Albumin Level 3.7 g/dL (3.5-5.1); Alkaline Phosphatase 93 U/L (38-126); Anion Gap 5 mmol/L (4-12); Aspartate Amino Transferase 22 U/L (17-59); Bilirubin,Total 0.6 mg/dL (0.2-1.3); Blood Urea Nitrogen 8 mg/dL (9-20); Calcium 8.6 mg/dL (8.4-10.2); Carbon Dioxide 29 mmol/L (22-30); Chloride 106 mmol/L (98-107); Estimated CRCL calculation 145 ml/min; Estimated Glomerular Filt Rate > 60; Glucose 107 mg/dL (65-110); Sodium 140 mmol/L (137-145)
[2024-08-31 14:17] LABS: Lipase 23 U/L (23-300); Potassium 3.6 mmol/L (3.4-5.0)
[2024-08-31 14:22] LABS: Troponin I < 0.012 ng/mL (0.000-0.034)
[2024-08-31 14:30] LABS: Influenza A QL RT-PCR Negative (Negative); Influenza B QL RT-PCR Negative (Negative); RSV RNA, RT-PCR Negative (Negative); SARS-CoV-2 RNA PCR Negative (Negative)
[2024-08-31] MEDS: ASPIRIN 81 MG CHEWABLE TABLET 324 MG PO (15:11)
[2024-08-31 15:14] VITALS: PULSE 83; O2SAT 98
[2024-08-31 15:16] VITALS: BP 125/89; PULSE 80; RESP 20; O2SAT 100
--- OUTSIDE RECORDS SUMMARY | 2024-08-31 16:29 | XMS_ITS | CONTINUITY OF CARE DOCUMENT ---
Author Name foxalysa foxalysa Address Unknown Organization [facility] Address [address] [place] [address] Phone [phone] Care Team Providers Care Hosiery Bagger Name Role Phone Sun SAUNDERS, Melia Amato Unavailable [phone] ML PATIÑO MD Unavailable [phone] ML PATIÑO MD Unavailable [phone] PROBLEMS Condition Status Date Provider Notes Cardiology examination active Melia oneil MD Hyperlipidemia active Melia Garsia MD Chest pain active Melia Garsia MD Family Hx heart disease active Melia treadwell MD Obesity active Melia Garsia MD ENCOUNTERS Date Type Provider Location Encounter Diag nosis - In-person encounter Office Visit Melia Garsia MD [place] [facility] Cardiology examinationHyperlipidemiaChest painFamily Hx heart diseaseObesity [...] marijuana Jocelyne Lugo NP drug use yes Jocelyne Lugo NP alcohol use no Jocelyne Lugo NP smoking status Never smoker Jocelyne Pendleton i, NP INSURANCE PROVIDERS Payer name Policy type / Coverage type [place] red green party ID [facility] [id number] ADVANCE DIRECTIVES Name Date DISCUSSED - NO DECISION MADE TREATMENT PLAN Date Name Performer [id number],C,W ill order echo to assess cardiac structure Jocelyne Lugo NP [id number],C, D iscussed healthy dieatry choices and weight loss measures. He currently has started belgica back to the gym starting Saturday this week. Jocelyne Lugo NP [id number],C, Gt rabago's father from an [place]. He also had HF. He was in his 60s at the time of his . Jocelyne Lugo NP [id number],C, His updated medication list for this problem includes: Simvastatin 20 Mg Tablet (Simvastatin) ..... Take 1 tablet by mouth once a day Jocelyne Lugo NP [id number],C, Gt rabago was having some sharp right [...] NP Cardiology: Gt rabago's father from an [place]. He also had HF. He was in [...]
--- OUTSIDE RECORDS SUMMARY | 2024-08-31 16:29 | XMS_ITS | Clinical Summary ---
Author Organization [facility] Care Team Providers Care Adolescent Counselor Name Role Phone Unavailable Primary Care Provider [...]
--- NOTE | 2024-08-31 16:46 | ECG_ITS ---
Test Date: 2024-08-31 16:51:12 Measurements Intervals [employer] Rate: 75 P: 31 TX: 198 QRS: -7 QRSD: 99 T: 14 QT: 356 QTc: 398 Interpretive Statements SINUS RHYTHM POOR R-WAVE PROGRESSION Compared to ECG 08/31/2024 13:38:15 NO SIGNIFICANT CHANGES Electronically Signed On 08-31-2024 20:35:09 CDT by James Marin M.D.
[2024-08-31 17:06] LABS: Troponin I < 0.012 ng/mL (0.000-0.034)
[2024-08-31] MEDS: KETOROLAC 30 MG/ML VIAL (*BKC) IM (17:27)
== END 2024-08-31 17:40 | disposition home or self-care (01) ==
PROVIDERS: Emergency Medicine; Physician Assistant; Emergency Provider Emergency Medicine
DX: R07.81 Pleurodynia (principal); Z20.822 Contact with and (suspected) exposure to COVID-19; R94.31 Abnormal electrocardiogram [ECG] [EKG]
CPT/HCPCS: 36415; 71046; 80053; 83690; 84484; 85025; 85610; 85730; 87637; 93005; 96372; 99284; A9270; J1885